=== PATIENT | male | born 1970 | race Caucasian/White ===

== ENCOUNTER 2017-12-02 09:21 | Outpatient (CLI) | payer OTHER | END 2017-12-02 09:22 | disposition home or self-care (01) | LOC: SC 09:21 | PROVIDERS: ATTEND Internal Medicine Pulmonary Disease | DX: G47.10 Hypersomnia, unspecified (principal); R51 Headache; R06.83 Snoring; G47.8 Other sleep disorders | CPT/HCPCS: 99203; 99212 ==

== ENCOUNTER 2018-01-19 19:29 | Outpatient (CLI) | payer OTHER | END 2018-01-19 19:30 | disposition home or self-care (01) | LOC: SC 19:29 | PROVIDERS: ATTEND Internal Medicine Pulmonary Disease | DX: G47.10 Hypersomnia, unspecified (principal); R06.83 Snoring | CPT/HCPCS: 95810 ==

== ENCOUNTER 2018-02-17 14:27 | Outpatient (CLI) | payer OTHER | END 2018-02-17 14:28 | disposition home or self-care (01) | LOC: SC 14:27 | PROVIDERS: ATTEND Internal Medicine Pulmonary Disease | DX: G47.00 Insomnia, unspecified (principal) | CPT/HCPCS: 99212; 99213 ==

== ENCOUNTER 2019-03-09 12:55 | Outpatient (CLI) | payer OTHER ==
--- NOTE | 2019-03-10 10:06 | MRI Report ---
Reason: PAIN IN UNSPECIFIED KNEE Procedure Date: 03/09/2019 Accession Number: [id number] / [id number] Procedure: MRI - Knee RT W/O CPT Code: FULL RESULT: EXAM: RIGHT KNEE MRI WITHOUT CONTRAST EXAM DATE: 03/09/2019 01:48 PM. CLINICAL HISTORY: Pain in unspecified knee. COMPARISON: None. TECHNIQUE: Multiplanar, multisequence T1-weighted and fluid-sensitive sequences of the knee without contrast. Other: None. FINDINGS: Cruciate ligaments: The anterior and posterior cruciate ligaments appear intact. Medial meniscus: Intact. No tear is identified. Lateral meniscus: Intact. No tear is identified. Collateral ligaments: The medial and fibular collateral ligaments appear intact. Bones and articular surfaces: Mild cartilage thinning and fissuring over the central aspect and medial facet of the patella with small foci of subchondral edema. Mild cartilage thinning and surface irregularity in the weightbearing medial compartment. No significant joint effusion. Extensor mechanism: The patellar tendon and quadriceps insertion appear intact. IMPRESSION: 1. 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 RADIA
--- NOTE | 2019-03-10 10:11 | MRI Report ---
Reason: PAIN IN UNSPECIFIED KNEE Procedure Date: 03/09/2019 Accession Number: [id number] / [id number] Procedure: MRI - Knee LT W/O CPT Code: FULL RESULT: EXAM: LEFT KNEE MRI WITHOUT CONTRAST EXAM DATE: 03/09/2019 02:13 PM. CLINICAL HISTORY: Left knee pain. No known injury. COMPARISON: None. TECHNIQUE: Multiplanar, multisequence T1-weighted and fluid-sensitive sequences of the knee without contrast. Other: None. FINDINGS: Cruciate ligaments: The anterior and posterior cruciate ligaments appear intact. Medial meniscus: Complex tear with horizontal and oblique radial components centered at the body-posterior horn junction. A tiny peripheral meniscal cyst formation at the posterior horn and posterior body. Associated intrasubstance degeneration. Lateral meniscus: Intact. No tear is identified. Collateral ligaments: The medial and fibular collateral ligaments appear intact. Bones and articular surfaces: Mild cartilage thinning and fissuring at the medial facet of the patella. Mild cartilage thinning and surface irregularity in the weight-bearing medial compartment. Extensor mechanism: The patellar tendon and quadriceps insertion appear intact. Edema within the suprapatellar quadriceps fat pad may reflect some degree of fat pad impingement. IMPRESSION: 1. Complex tear with horizontal and vertical components centered at the body-posterior horn junction of the medial meniscus. 2. Mild medial and patellofemoral compartment osteoarthritis. RADIA
== END 2019-03-09 12:56 | disposition home or self-care (01) ==
LOC: DI 12:55
PROVIDERS: ATTEND Orthopaedic Surgery
DX: M17.0 Bilateral primary osteoarthritis of knee (principal); S83.232A Complex tear of medial meniscus, current injury, left knee, initial encounter

== ENCOUNTER 2019-05-07 06:33 | Day surgery (SDC) | payer OTHER ==
[2019-05-07] MEDS ORDERED: PROPOFOL 200 MG/20 ML VIAL IVP ONE (06:34)
[2019-05-07] MEDS ORDERED: DEXAMETHASONE 4 MG/ML VIAL IVP ONE (06:34)
[2019-05-07] MEDS ORDERED: MIDAZOLAM 2 MG/2 ML VIAL IVP ONE (06:34)
[2019-05-07] MEDS ORDERED: KETOROLAC 30 MG/ML VIAL IVP ONE (06:34)
[2019-05-07] MEDS ORDERED: fentaNYL 100 MCG/2 ML VIAL IVP ONE (06:34)
[2019-05-07] MEDS ORDERED: LACTATED RINGERS 1,000 ML IV ONE ×2 (06:43→09:30)
[2019-05-07] MEDS ORDERED: BUPIVACAINE 0.25% PF 30 ML VIAL ONE (07:09)
--- NOTE | 2019-05-07 07:36 | ANESTHESIA ---
Pre-Anesthesia VS, & Labs - Diagnosis Right knee pain - Procedure Right knee arthroscopy Vital Signs: Temp Pulse Resp BP Pulse Ox 36.2 C L 79 12 133/91 H 95 05/07/19 06:43 05/07/19 06:43 05/07/19 06:43 05/07/19 06:43 05/07/19 06:43 Height 5 ft 10 in Weight (kg) 117.93 kg - NPO >8 hours - Lab Results Lab results reviewed: No Home Medications and Allergies Home Medications: Ambulatory Orders Atorvastatin [Lipitor] 10 mg PO DAILY 05/04/19 Sildenafil Citrate [Viagra] 50 mg PO DAILY 05/04/19 Active Medications Cefazolin Sodium 3 gm/ Sodium (Chloride) 100 mls @ 200 mls/hr IV ONCE ONE Stop: 05/07/19 08:29 Omeprazole [PriLOSEC] 20 mg PO DAILY 11/09/15 Atorvastatin [Lipitor] 10 mg PO DAILY 05/04/19 Sildenafil Citrate [Viagra] 50 mg PO DAILY 05/04/19 Allergies/Adverse Reactions: Allergies Allergy/AdvReac Type Severity Reaction Status Date / Time No Known Drug Allergies Allergy Verified 05/04/19 11:32 Anes History & Medical History - Anesthetic History Anesthesia Complications: reports: No previous complications Family history of Anesthesia Complications: Denies Family history of Malignant Hyperthermia: Denies - Medical History Cardiovascular: reports: High cholesterol Pulmonary: reports: None Gastrointestinal: reports: GERD, Colon polyps Urinary: reports: Other Neuro: reports: None Musculoskeletal: reports: None, Other Endocrine/Autoimmune: reports: None Blood Disorders: reports: None Skin: reports: None Smoking Status: Never smoker Psychosocial: reports: No issues indicated - Surgical History Eyes Ears Nose Throat (EENT): Other Exam General: Alert Dental: WNL Mouth Opening: Greater than 4 Fingerbreadths Neck Mobility: Normal Mallampati classification: I Thyromental Distance: greater than 6 cm Respiratory: Lungs clear Neurological: Normal speech Mental/Cognitive Status: Alert/Oriented X3 Cognitive Status: Within normal limits Plan Anesthesia Type: General Consent for Procedure(s) Verified and Reviewed: Yes Code Status: Attempt Resuscitation ASA classification: 2-Mild systemic disease Is this case an emergency?: No
[2019-05-07] MEDS ORDERED: EPINEPHrine 1 MG/ML AMP ONE (07:39)
[2019-05-07] MEDS ORDERED: TRIAMCINOLONE PF 40 MG/ML VIAL ONE (07:48)
[2019-05-07] MEDS ORDERED: ceFAZolin 3 GM in SODIUM CHLORIDE 0.9% 100ML 100 ML IV ONE (08:00)
[2019-05-07] MEDS ORDERED: BUPIVACAINE 0.25% PF 30 ML VIAL SUBQ ONE ×3 (08:05→08:42)
[2019-05-07] MEDS ORDERED: TRIAMCINOLONE 40 MG/ML VIAL IM ONE (08:40)
[2019-05-07] MEDS ORDERED: ONDANSETRON 4 MG/2 ML VIAL ONE (10:11)
[2019-05-07] MEDS ORDERED: METOCLOPRAMIDE 10 MG/2 ML VIAL ONE (10:23)
[2019-05-07] MEDS ORDERED: oxyCODONE 5 MG TABLET PO PRN (10:32)
[2019-05-07] MEDS ORDERED: ONDANSETRON 4 MG/2 ML VIAL IVP PRN (10:32)
--- NOTE | 2019-05-07 10:37 | OPERATIVE REPORT ---
Operative Report - General Procedure Date: 05/07/19 Planned Procedure: Right knee steroid injection, left knee arthrosopy and meniscal debridement Pre-Op Diagnosis: Right knee pain, Left knee medial meniscal tear Procedure Performed: Right knee steroid injection, left knee arthroscopy, medial meniscal debridement, medial plica resection, medial patealla and medial femoral condyle shaving chondroplasty Post Op Diagnosis: Right knee pain, Left knee medial plica and meniscal tear - Procedure Note Primary Surgeon: MINDI RAPP Anesthesia Technique: General LMA Estimated Blood Loss (mL): 5 - Other Other Information/Narrative: OPERATION PERFORMED: 1. Right knee steroid injection. 2. Left knee arthroscopy, medial meniscal debridement, medial plica resection, medial patella and medial femoral condyle shaving chondroplasty. Examination Under Anesthesia: ROM 0-125 and equal Stable dial at 30 & 90 degree B/L Stable to varus and valgus stressing at 0 & 30 degrees B/L IIA Yuli bilaterally. Neg Pivot shift bilaterally. Arthrocopic Findings: Left knee: 1. Patella: Slight medial facet and lateral facet chondral wear Outerbridge grade I-II changes, medial plica with associated MFC condyle wear (Grade II) 2. Trochlea: Mild chondral grooving (Grade I-II) 3. Medial Compartment: Femoral cartilage Grade 0-I in weightbearing areas, grade II changes at the anterior superior medial portion of the medial femoral condyle where the plica has abraded the chondral surface. Tibial cartilage grade I-II changes. Medial meniscus: root with mild fraying but intact, medial meniscus with large complex tear from posterior horn to body. 4. Lateral Compartment: Femoral cartilage Grade 0-I in weight bearing areas. Tibial cartilage Grade I-II changes with dipper fissuring than medial compartment. Lateral meniscal root intact with mild fraying, lateral meniscus intact. 5. ACL and PCL: Intact COMPLICATIONS: None IMPLANTS: None Tourniquet: approximately 106 minutes, 250 mmHg, left thigh Indications for procedure: The patient is a 48-year-old male with an approximately 8 to 10-year history of bilateral left greater than right knee pain. He initially endorsed a atraumatic onset of this pain, however after talking with his daughter, he was reminded that he did sustain an injury to his left knee while bowling approximately 8 to 10 years ago. He reported hearing a pop followed by some swelling. 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 Recently he has undergone approximately 2-1/2 months of therapy, with improvements in knee strength, but persistence of symptoms which are liferstyle limiting. An MRI of the right knee demonstrated mild tricompartmental chondromalacia worse in the patellofemoral articulation, but without any other structural abnormalities. MRI of the left knee demonstrated a similar chondral wear pattern, but with the presence of a large complex medial meniscal tear. On exam, his pain in the right knee localized mainly anteriorly, while on the left he had medial joint line pain, exacerbated with high degrees of flexion as well as some anterior medial knee pain in the vicinity of the medial femoral condyle/medial patellar border. He failed non-operative treatment to include physical therapy, icing, heat, and oral nonsteroidal medications. The risks, benefits of surgical and nonoperative treatments were discussed. He elected to proceed with a right knee corticosteroid injection and left knee arthroscopy with meniscal debridement. Surgical risks included pain, bleeding, infection, damage to nearby structures, lack of symptom relief, implant complications, stiffness, need for further surgeries, DVT, PE, stroke, and even . Injection risks discussed included infection, bleeding, steroid flare reaction, altered blood glucose, failure to relieve symptoms, allergic reactions, chondral degeneration, and pain. We discussed the expected recovery time line. After discussion and answering questions, he wished to proceed with a right knee injection and left knee surgery; he signed a written consent form. Procedure Details: The patient was met in the pre-operative hold area. Persistence of symptoms and consent was verified. The patient verified the surgical site as the left knee and the injection site as the right knee. The left knee was initialed per our standard protocol, and the right knee was identified with "injection only" using surgical marker. The patient then met with anesthesia and was brought back to the operating room. The patient was placed supine on the operating table. A general anesthetic was administered and LMA was placed. A well-padded tourniquet was placed on the left thigh. Following tourniquet placement, a surgical timeout was performed, verifying the correct patient, the correct procedure and the correct injection and surgical sites. We confirmed that perioperative antibiotics consisting of 3 g IV cefazolin had been administered. Everyone agreed to proceed. Following the timeout, the right knee was prepped with alcohol and ChloraPrep, and 10 mL of a mixture of 2 mL of Kenalog 40 and 8 mL of 0.25% Marcaine plain were injected without difficulty into the right knee via superolateral approach. The needle was removed and this incision was dressed. The left lower extremity was then prepped and draped in the usual sterile fashion. The Escmarch was used to exsanguinate the left lower extremity and the tourniquet was raised. An 11 blade scalpel was used to make an anterolateral arthroscopic portal, the anteromedial was created using needle localization and direct visualization. The arthroscope was introduced into the knee and a diagnostic arthroscopy was performed with the above-stated findings. A limited debridement of the anterior fat pad was performed to improve visualization. Meniscal Debridement: Arthroscopic biters and the sucker shaver were used to debride the torn meniscal tissue and debride the meniscus back to a stable rim. The arthroscopic probe was used to ensure that the remaining meniscal tissue was stable. Plica debridement: The arthroscopic sucker shaver was used to debride the prominent medial plica back to the level of the joint capsule. Chondroplasty: A limited shaving chondroplasty of the medial facet of the patella and medial femoral condyle was performed. The arthroscopic instruments were then removed from the knee. The portals were closed with 3-0 Monocryl. 0.25% Marcaine plain was injected into the periarticular soft tissues. The incisions were dressed with Xeroform gauze, 4x4 gauze, an ABD and HARRIETT stocking. A thigh-high HARRIETT stocking was also placed on the right leg . The tourniquet was lowered. The surgical drapes were removed. The patient was awoken from anesthesia, transferred to the hospital bed, and taken to the PACU for recovery in good condition. Postoperative plan: 1. Discharge home from the same day surgery facility once the patient has met discharge criteria. 2. Advance weightbearing as tolerated, range of motion as tolerated, and wean from crutches as tolerated as gait normalizes. 3. Return to clinic in 5-7 days for wound check. Will start formal PT at that time. 4. Allow advancement of activities as tolerated with full clearance for all activities anticipated in 6-8 weeks postoperatively. 5. DVT ppx: HARRIETT hose x 3 weeks and ASA 325mg x 1 month.
[2019-05-07] MEDS ORDERED: PROMETHAZINE 25 MG/1 ML VIAL ONE (10:45)
[2019-05-07 11:29] VITALS: BP 109/70
== END 2019-05-07 06:34 | disposition home or self-care (01) ==
LOC: SDS 06:33
PROVIDERS: ATTEND Orthopaedic Surgery
PROC: 3E0U33Z Introduction of Anti-inflammatory into Joints, Percutaneous Approach (ICD-10-PCS; 2019-05-07)
PROC: 0SBD4ZZ Excision of Left Knee Joint, Percutaneous Endoscopic Approach (ICD-10-PCS; principal; 2019-05-07 08:00)
DX: S83.242A Other tear of medial meniscus, current injury, left knee, initial encounter (principal); M94.262 Chondromalacia, left knee; M94.261 Chondromalacia, right knee; M67.52 Plica syndrome, left knee
CPT/HCPCS: 20610; 29881; J2765; J7120